=== PATIENT | male | born 1960 | race Hispanic/Latino ===

== ENCOUNTER → 2019-09-27 | Outpatient (CLI) | payer OTHER ==
[~2019-09-27] MED LIST: HONEY 1 APPL/ML TUBE TP ONE; LIDOCAINE HCL 4% LTA SOL 4 ML VIAL ONE
== END | disposition home or self-care (01) ==
LOC: WHH 09:00
PROVIDERS: ATTEND Surgery
DX: I83.023 Varicose veins of left lower extremity with ulcer of ankle (principal); L97.322 Non-pressure chronic ulcer of left ankle with fat layer exposed
CPT/HCPCS: 11042; 36415; 80053; 82948; 85025; 85651; 86140; 87070; 87077; 87186; G0463

== ENCOUNTER → 2019-09-30 | Outpatient (CLI) | payer OTHER | END | disposition home or self-care (01) | LOC: WHH 09:30 | PROVIDERS: ATTEND Surgery | DX: I83.023 Varicose veins of left lower extremity with ulcer of ankle (principal); L97.321 Non-pressure chronic ulcer of left ankle limited to breakdown of skin | CPT/HCPCS: 93923; G0463 ==

== ENCOUNTER → 2019-10-04 | Outpatient (CLI) | payer OTHER | END | disposition home or self-care (01) | LOC: WHH 09:30 | PROVIDERS: ATTEND Surgery | DX: E11.622 Type 2 diabetes mellitus with other skin ulcer (principal); I83.023 Varicose veins of left lower extremity with ulcer of ankle; L97.322 Non-pressure chronic ulcer of left ankle with fat layer exposed; I83.022 Varicose veins of left lower extremity with ulcer of calf; L97.222 Non-pressure chronic ulcer of left calf with fat layer exposed; I11.0 Hypertensive heart disease with heart failure; I50.20 Unspecified systolic (congestive) heart failure; Z86.718 Personal history of other venous thrombosis and embolism | CPT/HCPCS: 11042; 99213 ==